=== PATIENT | female | born 2000 | race Caucasian/White ===

== ENCOUNTER 2020-12-13 13:04 | Emergency (ER) | payer OTHER, MEDICAID ==
[~2020-12-13] VITALS: Ht 167.6 cm; Wt 80.0 kg
[2020-12-13] MEDS ORDERED: LORAZEPAM 2MG/ML CPJ IV STA (13:29)
[2020-12-13] MEDS ORDERED: SODIUM CHLORIDE 0.9% 1,000 ML IV ONE (13:30)
[2020-12-13 14:26] LABS: CLARITY URINE CLOUDY (CLEAR); COLOR URINE YELLOW (YELLOW); KETONES URINE 2+ (NEGATIVE); LEUKOCYTE ESTERASE URINE 2+ (NEGATIVE); NITRITE URINE NEGATIVE (NEGATIVE); OCCULT BLOOD URINE NEGATIVE (NEGATIVE); PH URINE 7.5 (4.5-8.0); PROTEIN URINE NEGATIVE (NEGATIVE); SPECIFIC GRAVITY URINE 1.012 (1.005-1.030); UROBILINOGEN URINE 0.2 E.U./dL (0.2-1.0)
[2020-12-13 14:34] LABS: BASOPHILS % 0.5 % (0.0-2.0); EOSINOPHILS % 0.2 % (0.0-5.0); HEMATOCRIT. 40.1 % (36.0-48.0); HEMOGLOBIN. 13.7 g/dL (12.0-16.0); LYMPHOCYTES % 24.6 % (20.0-50.0); MEAN CORPUSCULAR HEMOGLOBIN 30.8 pg (28.0-32.0); MEAN CORPUSCULAR VOLUME 90.3 fL (81.0-99.0); MONOCYTES % 7.4 % (2.0-8.0); NEUTROPHILS % 67.3 % (40.0-76.0); PLATELET 284 x1000/uL (130-400); RED BLOOD CELL COUNT 4.44 mill/uL (4.2-5.4); RED CELL DISTRIBUTION WIDTH 12.9 % (11.6-14.6)
[2020-12-13 14:39] LABS: CHLORIDE 110 mEq/L (98-107)
[2020-12-13 14:41] LABS: *AMPHETAMINES SCREEN URINE NEGATIVE (NEGATIVE); *BARBITURATES SCREEN URINE NEGATIVE (NEGATIVE); *BENZODIAZEPINES SCREEN URINE NEGATIVE (NEGATIVE); METHADONE URINE SCREEN NEGATIVE (NEGATIVE)
[2020-12-13 14:42] LABS: PHENCYCLIDINE URINE SCREEN NEGATIVE (NEGATIVE)
[2020-12-13 14:43] LABS: ETHANOL BLOOD < 10 mg/dL
[2020-12-13 14:53] LABS: OPIATES URINE SCREEN NEGATIVE (NEGATIVE)
[2020-12-13 14:57] LABS: *COCAINE SCREEN URINE PRESUMTIVE POSITIVE (NEGATIVE); CANNABINOID URINE SCREEN PRESUMTIVE POSITIVE (NEGATIVE)
[2020-12-13 15:17] LABS: HCG SCREEN NEGATIVE
[2020-12-13] MEDS ORDERED: NITR-87 MT (16:25)
[2020-12-13] MEDS ORDERED: METRONIDAZOLE 500MG TABLET PO ONE (16:30)
[2020-12-13 17:00] VITALS: BP 138/85
== END 2020-12-13 18:12 | disposition home or self-care (01) ==
LOC: ER 13:34
DX: F14.90 Cocaine use, unspecified, uncomplicated (principal); N39.0 Urinary tract infection, site not specified
CPT/HCPCS: 36415; 71045; 80053; 80305; 80307; 80320; 80329; 81003; 81025; 84703; 85025; 87086; 93005; 96361; 96374; 99285; J2060; J7030; Z7610; G0480